=== PATIENT | male | born 1985 | race Caucasian/White ===

== ENCOUNTER 2021-06-24 10:11 | Day surgery (SDC) | payer OTHER, SELFPAY ==
[2021-06-24] MEDS ORDERED: diphenhydrAMINE 50 MG/ML VIAL ONE (11:55)
[2021-06-24] MEDS ORDERED: MIDAZOLAM 5 MG/5 ML VIAL ONE (11:55)
[2021-06-24] MEDS ORDERED: fentaNYL citrate 0.05 MG/ML VIAL ONE (11:55)
[2021-06-24] MEDS ORDERED: LIDOCAINE 2% 100 MG/5 ML UJET TP ONE (11:55)
[2021-06-24] MEDS ORDERED: diphenhydrAMINE 50 MG/ML VIAL IVP ONE (12:55)
[2021-06-24] MEDS ORDERED: MIDAZOLAM 2 MG/2 ML VIAL IVP ONE (12:55)
[2021-06-24] MEDS ORDERED: fentaNYL citrate 0.05 MG/ML VIAL IVP ONE (12:55)
== END 2021-06-24 13:18 | disposition home or self-care (01) ==
LOC: MDS 10:11 → MFCC 11:18 → MDS 13:18
PROVIDERS: ATTEND Internal Medicine Gastroenterology
DX: R19.4 Change in bowel habit (principal); R10.9 Unspecified abdominal pain; Z79.899 Other long term (current) drug therapy; Z20.822 Contact with and (suspected) exposure to COVID-19
CPT/HCPCS: 45378; 87426; J1200; J2250; J3010